=== PATIENT | male | born 1990 | race Caucasian/White ===

== ENCOUNTER 2018-04-26 14:27 | Emergency (ER) | payer SELFPAY ==
[~2018-04-26] VITALS: Ht 185.4 cm; Wt 104.3 kg
[2018-04-26 15:00] VITALS: BP 124/83
== END 2018-04-26 18:55 | disposition left against medical advice (07) ==
LOC: ER 14:27
DX: S09.90XA Unspecified injury of head, initial encounter (principal); Z53.21 Procedure and treatment not carried out due to patient leaving prior to being seen by health care provider; X58.XXXA Exposure to other specified factors, initial encounter; Y93.89 Activity, other specified; Y99.8 Other external cause status; Y92.89 Other specified places as the place of occurrence of the external cause